=== PATIENT | female | born 1960 | race Caucasian/White ===

== ENCOUNTER → 2017-06-12 | Outpatient (CLI) | payer BC ==
[~2017-06-12] VITALS: Ht 160 cm; Wt 83.0 kg
[~2017-06-12] MED LIST: ATIVAN2 MG PO; BENTYL10 MG PO; CYMBALTA60 MG PO; Cipro PO; Cymbalta PO; GAVISCON TABLE1 EACH PO; HEARTBURN RELI150 M1 PO; KLONOPIN1 MG PO; OMEPRAZOLE40 M1 PO; PERCOCET 10/1 TABLET PO; PREMARIN1.25 MG PO; PROAIR HFA8.5 GM IH; REMERON15 M2 PO; VITAMIN D31000 UNI2 PO
== END | disposition home or self-care (01) ==
LOC: AMB 10:59
PROC: 0DB68ZX Excision of Stomach, Via Natural or Artificial Opening Endoscopic, Diagnostic (ICD-10-PCS; principal; 2017-06-12)
DX: K29.70 Gastritis, unspecified, without bleeding (principal); R19.7 Diarrhea, unspecified; E78.01 Familial hypercholesterolemia; Z86.010 Personal history of colon polyps; E55.9 Vitamin D deficiency, unspecified; F32.9 Major depressive disorder, single episode, unspecified; K21.9 Gastro-esophageal reflux disease without esophagitis; K44.9 Diaphragmatic hernia without obstruction or gangrene; Z79.818 Long term (current) use of other agents affecting estrogen receptors and estrogen levels; Z88.8 Allergy status to other drugs, medicaments and biological substances
CPT/HCPCS: 88305; 88342 TC; J2250; J3010